=== PATIENT | female | born 1950 | race Caucasian/White ===

== ENCOUNTER 2024-12-28 07:47 | Day surgery (SDC) | payer BC, MEDICARE ==
[2024-12-28] MEDS: Lactated Ringers 1,000 ML IV SCH (07:45)
[~2024-12-28 07:47] MED LIST: Sodium Chloride 0.9% 10 ML Syringe FLUSH PRN; Sodium Chloride 0.9% 10 ML Syringe FLUSH SCH
[2024-12-28] MEDS ORDERED: Propofol 200 MG/20 ML SDV ONE (08:57)
[2024-12-28] MEDS ORDERED: Lidocaine 1% 4 ML ONE (08:57)
== END 2024-12-28 10:25 | disposition home or self-care (01) ==
LOC: JD.SDS 07:47
PROVIDERS: ATTEND Surgery
DX: Z12.11 Encounter for screening for malignant neoplasm of colon (principal); K57.30 Diverticulosis of large intestine without perforation or abscess without bleeding; I10 Essential (primary) hypertension; Z88.8 Allergy status to other drugs, medicaments and biological substances; Z86.0101 Personal history of adenomatous and serrated colon polyps; Z79.899 Other long term (current) drug therapy
CPT/HCPCS: 45378; J2003; J2704; J7120